=== PATIENT | female | born 1950 | race Hispanic/Latino ===

== ENCOUNTER 2017-08-27 07:35 | Emergency (ER) | payer SELFPAY ==
[~2017-08-27] VITALS: Ht 160 cm; Wt 66.0 kg
[~2017-08-27 07:35] MED LIST: (None)10 MG OR; ACTOS15 MG OR; ACYCLOVIR800 MG OR; AMARYL4 MG PO; AMITIZA24 MC1 PO; AMOXICILLIN500 MG PO; ASPIRIN81 MG PO; ATENOLOL25 MG PO; BACTRIM DS1 TAB PO; CARAFATE1 G1 PO; CEPHALEXIN500 MG OR; DARVOCET N-100100 - OR; DIABETA5 MG OR; FLEXERIL OR; GLIMEPIRIDE2 MG PO; GLYB/METFO5 MG/500 M PO; KEFLEX500 MG OR; LISINOPRIL10 MG OR; LISINOPRIL20 M1 PO; LORTAB 10-325 M1 TAB PO; LORTAB 5 OR; LORTAB 7.5-3251 TAB PO; LORTAB5 OR; LOSARTAN POT50 MG PO; LYRICA75 MG PO; MACRODANTIN100 MG PO; METFORMIN500 M1 OR; METFORMIN850 MG PO; NAPROSYN500 MG OR; NEXIUM20 MG PO; PENTOXIFYLLI400 M1 OR; PHENERGAN25 MG/TAB PO; RANITIDINE150 MG OR; SIMVASTATIN10 MG OR; SIMVASTATIN20 MG PO; VALTREX1 GM OR; [UNRECOGNIZED DRUG - OTHER] PO
[2017-08-27] MEDS ORDERED: AMITIZA24 MCG PO (08:22)
[2017-08-27] MEDS ORDERED: METFORMIN850 MG PO (08:23)
[2017-08-27] MEDS ORDERED: GLIMEPIRIDE2 MG PO (08:23)
[2017-08-27] MEDS ORDERED: LOSARTAN POT50 MG PO (08:24)
[2017-08-27] MEDS ORDERED: ULTRAM50 M1 PO (08:48)
[2017-08-27] MEDS ORDERED: FLEXERIL PO (09:59)
[2017-08-27 10:15] VITALS: BP 159/74
== END 2017-08-27 10:15 | disposition home or self-care (01) | DRG 605 ==
LOC: ED 07:35
DX: S40.012A Contusion of left shoulder, initial encounter (principal); S43.112A Subluxation of left acromioclavicular joint, initial encounter; W18.39XA Other fall on same level, initial encounter; Y93.89 Activity, other specified; Y92.009 Unspecified place in unspecified non-institutional (private) residence as the place of occurrence of the external cause

== ENCOUNTER 2017-10-31 02:46 | Observation (INO) | payer SELFPAY ==
[~2017-10-31] VITALS: Ht 157.5 cm; Wt 62.0 kg
[~2017-10-31 02:46] MED LIST changes: +AMITIZA24 MCG PO; +FLEXERIL PO; +ULTRAM50 M1 PO
--- NOTE | 2017-10-31 02:50 | NUR ---
FAMILY AT BEDSIDE. EXPLAINED CURRENT PLAN OF CARE.
--- NOTE | 2017-10-31 03:03 | NUR ---
Pt tolerated procedures well. IV PATENT.
--- NOTE | 2017-10-31 04:00 | NUR ---
RESTING QUIETLY. AWAITING DISPOSITION.
[2017-10-31 04:14] LABS: ALBUMIN 4.4 g/dL (3.2-5.0); ALKALINE PHOSPHATASE 120 u/l (38-126); ANION GAP 18 (6-22 (CALC)); BILIRUBIN, TOTAL 0.4 mg/dL (0.0-1.4); BUN 18 mg/dL (8-23); BUN/CREATININE RATIO 21 (12-20 (CALC)); CARBON DIOXIDE 24 mmol/l (22-30); CHLORIDE 105 mmol/l (95-108); CREATININE 0.9 mg/dL (0.5-1.0); GFR > 60 ML/MIN (>=60 (CALC)); GFR FOR AFR.AMER. > 60 ML/MIN (>=60 (CALC)); POTASSIUM 3.9 mmol/l (3.5-5.1); SGOT/AST 30 u/l (9-36); SGPT/ALT 15 u/l (11-66); SODIUM 143 mmol/l (137-146); TOTAL PROTEIN 7.3 g/dL (6.3-8.2)
[2017-10-31 04:18] LABS: HEMATOCRIT 35.9 % (37.0-47.0); HEMOGLOBIN 12.1 g/dl (12.0-16.0); IMMATURE GRANULOCYTES 0.7 % (0.0-1.0); MEAN CELL VOLUME 89.1 fL CALC (80.0-100.0); MEAN CORPUSCULAR HGB CONC 33.7 g/L CALC (32.0-36.0); NEUT# 3.82 thou/uL (2.00-7.15); RED BLOOD COUNT 4.03 mill/uL (4.20-5.60); RED CELL DISTRI WIDTH 12.3 % (11.5-15.5)
[2017-10-31 04:26] LABS: MYOGLOBIN 40 ng/mL (0 - 62)
--- NOTE | 2017-10-31 05:00 | NUR ---
DISCUSSED HOME MEDS AND ADMISSION.
--- NOTE | 2017-10-31 05:11 | NUR ---
STATES HEADACHE IS IMPROVED IS CHEST PAIN.
[2017-10-31 05:45] LABS: URINE BILIRUBIN - DIPSTICK NEGATIVE (NEGATIVE); URINE BLOOD DIPSTICK TRACE-INTACT (NEGATIVE); URINE COLOR YELLOW; URINE GLUCOSE - DIPSTICK NEGATIVE (NEGATIVE); URINE KETONE NEGATIVE (NEGATIVE); URINE LEUK ESTERASE NEGATIVE (NEGATIVE); URINE NITRITE - DIPSTICK NEGATIVE (Negative); URINE PROTEIN - DIPSTICK 100 mg/dL (NEG-TRACE); URINE SPECIFIC GRAVITY <=1.005; URINE UROBILINOGEN - DIPSTICK 0.2 E.U./dL (0.2)
[2017-10-31 06:04] LABS: URINE CLARITY CLEAR
[2017-10-31 06:08] LABS: URINE RBC 0-2 RBC/hpf (0-5); URINE SQUAMOUS EPITHELIAL CELL FEW EPI/hpf (0-FEW); URINE WBC 0-2 WBC/hpf (0-5)
--- NOTE | 2017-10-31 06:14 | NUR ---
APPEARS ASLEEP IN NO APPARENT DISTRESS.
--- NOTE | 2017-10-31 07:00 | NUR ---
Admission Note Report Given to: VIMAL RAY Transported by: Wheelchair X Stretcher Transported with: X Nurse Transporter X Patent IV O2 Die Assembler
--- NOTE | 2017-10-31 07:05 | NUR ---
PT CAME VIA STRETCHER WITH ER STAFF. SNUFF BOX FINISHER IN ROOM TO ASSIST PT TO BED.
[2017-10-31 07:23] VITALS: BP 146/72
--- NOTE | 2017-10-31 08:30 | NUR ---
PT IS RESTING IN BED AND ASSESSMENT DONE. RESP EVEN AND NON-LABOR. PT STATED THAT SHE HAS A HEADACHE THAT IS 4/10. PT STATED THAT SHE HAS BEEN FEELING DIZZY. #20 LAC THAT APPEARS HEALTHLY. ORIENTED PT TO ROOM AND CALL LIGHT SYSTEM. REINFORCED SAFETY PRECAUTIONS. PT VERBALIZED UNDERSTANDING. CALL LIGHT IN REACH. FAMILY IN ROOM.
[2017-10-31 09:51] LABS: CHOLESTEROL HDL RATIO 5.1 (<4.4 (CALC)); MAGNESIUM 1.6 mg/dL (1.6-2.3)
--- NOTE | 2017-10-31 10:00 | NUR ---
JOSSE IN TO ASSESS PT. ORDERS RECEIVED.
--- NOTE | 2017-10-31 10:28 | NUR ---
MEDICATED PT WITH TYLENOL FOR HER HEADACHE. PT IS VISITING WITH FAMILY. PT DENIES ANY OTHER NEEDS AT THIS TIME.
[2017-10-31 11:00] VITALS: BP 137/56
--- NOTE | 2017-10-31 11:23 | NUR ---
PT IS RESTING IN BED.PT STATED THAT HEADACHE IS LESS AND THAT MEDICATION HELPED. PT DENIES NEEDS AT THIS TIME. FAMILY IN ROOM.
[2017-10-31 15:00] VITALS: BP 133/56
--- NOTE | 2017-10-31 15:00 | NUR ---
Spoke to pt, using son to translate, about current medication. Pt states all medications are changing soon. Does not wish to discuss medications.
--- NOTE | 2017-10-31 16:01 | NUR ---
PT IS RESTING IN BED. MEDICATED PT WITH ANTIVERT 25MG. DISCUSSED WITH PT THAT MEDICATION HELPS WITH DIZZINESS. PT VERBALIZED UNDERSTANDING. PT HAS FAMILY IN ROOM. CALL LIGHT IN REACH.
--- NOTE | 2017-10-31 16:45 | NUR ---
PHYSICAL THERAPY AT BEDSIDE TO ASSESS PT.
--- NOTE | 2017-10-31 17:20 | NUR ---
MEDICATED PT WITH TYLENOL 500MG FOR HER HEADACHE. PT STATED THAT PAIN IS 5/10. NO S/S OF DISTRESS NOTED. PT DENIES ANY OTHER NEEDS AT THIS TIME.
--- NOTE | 2017-10-31 18:18 | NUR ---
PT IS RESTING IN BED. WITH FAMILY IN ROOM. PT STATED THAT MEDICATION HELPED WITH HER PAIN AND THAT PAIN IS 2/10.
[2017-10-31 18:59] VITALS: BP 138/65
--- NOTE | 2017-10-31 19:30 | NUR ---
PT SITTING UP IN BED WATCHING TV. FAMILY IN ROOM. PT IS SYRIAN SPEAKING ONLY. FAMILY IN ROOM TO INTERPRET. PT IS ALERT AND ORIENTED X3. PERRLA. RESP ARE EVEN AND UNLABORED. NO DISTRESS NOTED. LUNGS ARE CLEAR. TELE IN PLACE. HR REGULAR. PULSES PALPABLE THROUGHOUT. NO EDEMA NOTED. BS ACTIVE. #20 LAC SALINE LOCKED. NO REDNESS OR EDEMA NOTED. WILL CONTINUE TO MONITOR
[2017-11-01] VITALS: BP 116/50
--- NOTE | 2017-11-01 | NUR ---
PT RESTING IN BED WITH EYES CLOSED. RESP ARE EVEN AND UNLABORED. NO DISTRESS NOTED. WILL CONTINUE TO MONITOR
[2017-11-01 04:25] VITALS: BP 125/51
--- NOTE | 2017-11-01 07:00 | NUR ---
RECEIVED BEDSIDE REPORT FROM ISHAN CELIS. RESTING IN BED WITH EYES CLOSED, AWAKENS EASILY. RESPS EVEN AND UNLABORED ON ROOM AIR, TELE MONITOR IN PLACE. DENIES PAIN OR DISCOMFORT. PLAN OF CARE DISCUSSED. SAFETY PRECAUTIONS REINFORCED. BED IN LOWEST POSITION WITH WHEELS LOCKED. CALL LIGHT WITHIN REACH. WILL CONTINUE TO MONITOR.
[2017-11-01 07:16] VITALS: BP 112/56
[2017-11-01 11:39] VITALS: BP 149/69
--- NOTE | 2017-11-01 12:00 | NUR ---
IN [facility] EATING LUNCH. RESPS EVEN AND UNLABORED ON ROOM AIR, TELE MONITOR IN PLACE. DENIES PAIN OR DIZINESS. FAMILY AT BEDSIDE. CALL LIGHT WITHIN REACH. WILL CONTINUE TO MONTIOR.
--- NOTE | 2017-11-01 13:05 | NUR ---
DR MADDOX IN WITH PT, NEW ORDERS RECEIVED.
[2017-11-01] MEDS ORDERED: LOPRESSOR25 MG PO (13:19)
[2017-11-01] MEDS ORDERED: GLIMEPIRIDE2 MG PO (13:19)
[2017-11-01] MEDS ORDERED: METFORMIN1000 MG PO (13:19)
[2017-11-01] MEDS ORDERED: LIPITOR20 MG PO (13:19)
[2017-11-01] MEDS ORDERED: ADLT ASA LOW81 MG PO (13:19)
--- NOTE | 2017-11-01 14:43 | NUR ---
IV site discontinued, cath intact. No edema , no redness, voices no discomfort.
--- NOTE | 2017-11-01 15:37 | NUR ---
Discharge instructions given. Patient verbalizes understanding of same. Discharged in stable condition via Wheelchair to Home with family. All belongings sent with pt.
== END 2017-11-01 15:37 | disposition home or self-care (01) | DRG 313 ==
LOC: ED 02:46 → ED-I 04:30 → ED 05:03 → MS2 05:04
PROVIDERS: Emergency Medicine; Nurse Practitioner Family; ADMIT Internal Medicine; ATTEND Internal Medicine
PROC: 3E0234Z Introduction of Serum, Toxoid and Vaccine into Muscle, Percutaneous Approach (ICD-10-PCS; principal; 2017-11-01)
DX: R07.2 Precordial pain (principal); E11.65 Type 2 diabetes mellitus with hyperglycemia; I10 Essential (primary) hypertension; I16.0 Hypertensive urgency; R42 Dizziness and giddiness; R51 Headache; K21.9 Gastro-esophageal reflux disease without esophagitis; E78.5 Hyperlipidemia, unspecified; Z87.440 Personal history of urinary (tract) infections; Z91.11 Patient's noncompliance with dietary regimen; Z79.84 Long term (current) use of oral hypoglycemic drugs; Z23 Encounter for immunization
CPT/HCPCS: G0378

== ENCOUNTER 2019-04-03 08:07 | Observation (INO) | payer MEDICARE, MEDICAID ==
[~2019-04-03] VITALS: Ht 157.5 cm; Wt 59.0 kg
[~2019-04-03 08:07] MED LIST changes: +ADLT ASA LOW81 MG PO; +LIPITOR20 MG PO; +LOPRESSOR25 MG PO; +LOSARTAN POT100 MG PO; +METFORMIN1000 MG PO
[2019-04-03 08:38] LABS: HEMOGLOBIN 13.4 g/dl (12.0-16.0); IMMATURE GRANULOCYTES 0.9 % (0.0-5.0); MEAN CELL VOLUME 87.1 fL CALC (80.0-100.0); MEAN CORPUSCULAR HGB 29.2 pG CALC (26.0-32.0); MEAN CORPUSCULAR HGB CONC 33.5 g/L CALC (32.0-36.0); NEUT# 5.26 thou/uL (2.00-7.15); RED BLOOD COUNT 4.59 mill/uL (4.20-5.60); RED CELL DISTRI WIDTH 11.7 % (11.5-15.5)
[2019-04-03 09:02] LABS: ALBUMIN 4.5 g/dL (3.2-5.0); ALKALINE PHOSPHATASE 157 u/l (38-126); ANION GAP 21 (6-22 (CALC)); BUN 22 mg/dL (8-23); BUN/CREATININE RATIO 24 (12-20 (CALC)); CARBON DIOXIDE 20 mmol/l (22-30); CHLORIDE 103 mmol/l (95-108); CREATININE 0.9 mg/dL (0.5-1.0); GFR > 60 ML/MIN (>=60 (CALC)); GFR FOR AFR.AMER. > 60 ML/MIN (>=60 (CALC)); POTASSIUM 4.4 mmol/l (3.5-5.1); SGOT/AST 27 u/l (9-36); SODIUM 139 mmol/l (137-146); TOTAL PROTEIN 7.7 g/dL (6.3-8.2)
[2019-04-03 09:08] LABS: BILIRUBIN, TOTAL 0.7 mg/dL (0.0-1.4)
[2019-04-03 09:14] LABS: MYOGLOBIN 51 ng/mL (0 - 62)
[2019-04-03] MEDS ORDERED: LOPRESSOR25 M1 PO (09:55)
[2019-04-03] MEDS ORDERED: GLIMEPIRIDE2 MG PO (09:56)
[2019-04-03] MEDS ORDERED: LIPITOR20 M1 PO (09:56)
[2019-04-03] MEDS ORDERED: METFORMIN HCL750 MG PO (09:57)
[2019-04-03] MEDS ORDERED: ALLERGY RELF10 M3 PO (09:57)
[2019-04-03 10:44] VITALS: BP 167/81
[2019-04-03 11:27] LABS: URINE BILIRUBIN - DIPSTICK NEGATIVE (NEGATIVE); URINE BLOOD DIPSTICK NEGATIVE (NEGATIVE); URINE COLOR YELLOW; URINE GLUCOSE - DIPSTICK 500 mg/dL (NEGATIVE); URINE KETONE TRACE mg/dL (NEGATIVE); URINE LEUK ESTERASE NEGATIVE (NEGATIVE); URINE NITRITE - DIPSTICK NEGATIVE (Negative); URINE PH 5.5 (4.5-8.0); URINE SPECIFIC GRAVITY 1.015; URINE UROBILINOGEN - DIPSTICK 0.2 E.U./dL (0.2)
[2019-04-03 11:28] LABS: URINE PROTEIN - DIPSTICK Trace mg/dL (NEG-TRACE)
[2019-04-03 12:53] VITALS: BP 118/48
[2019-04-03 16:00] VITALS: BP 144/62
[2019-04-03 19:22] VITALS: BP 141/75
[2019-04-04 04:04] VITALS: BP 141/67
[2019-04-04 05:24] LABS: HEMATOCRIT 34.3 % (37.0-47.0); HEMOGLOBIN 11.5 g/dl (12.0-16.0); IMMATURE GRANULOCYTES 0.7 % (0.0-5.0); MEAN CELL VOLUME 87.9 fL CALC (80.0-100.0); MEAN CORPUSCULAR HGB 29.5 pG CALC (26.0-32.0); MEAN CORPUSCULAR HGB CONC 33.5 g/L CALC (32.0-36.0); NEUT# 2.53 thou/uL (2.00-7.15); RED BLOOD COUNT 3.9 mill/uL (4.20-5.60); RED CELL DISTRI WIDTH 11.8 % (11.5-15.5)
[2019-04-04 05:41] LABS: ALBUMIN 3.4 g/dL (3.2-5.0); ALKALINE PHOSPHATASE 110 u/l (38-126); AMYLASE 44 u/l (30-110); ANION GAP 15 (6-22 (CALC)); BILIRUBIN, TOTAL 0.4 mg/dL (0.0-1.4); BUN 26 mg/dL (8-23); BUN/CREATININE RATIO 27 (12-20 (CALC)); CARBON DIOXIDE 23 mmol/l (22-30); CHLORIDE 104 mmol/l (95-108); GFR 55 ML/MIN (>=60 (CALC)); GFR FOR AFR.AMER. > 60 ML/MIN (>=60 (CALC)); LIPASE 76 u/l (23-300); MAGNESIUM 1.6 mg/dL (1.6-2.3); POTASSIUM 4.8 mmol/l (3.5-5.1); SGOT/AST 22 u/l (9-36); SODIUM 138 mmol/l (137-146)
[2019-04-04 07:15] VITALS: BP 143/72
[2019-04-04 09:17] LABS: CHOLESTEROL HDL RATIO 4.8 (<4.4 (CALC))
[2019-04-04 09:42] VITALS: BP 143/72
== END 2019-04-04 11:40 | disposition home or self-care (01) ==
LOC: ED 08:07 → ED-I 09:32 → ED 09:53 → MS2 09:54
PROVIDERS: Emergency Medicine; Nurse Practitioner Family; ADMIT Internal Medicine Nephrology; ATTEND Internal Medicine Nephrology
PROC: 3E0234Z Introduction of Serum, Toxoid and Vaccine into Muscle, Percutaneous Approach (ICD-10-PCS; principal; 2019-04-04)
DX: R07.89 Other chest pain (principal); K21.9 Gastro-esophageal reflux disease without esophagitis; E11.65 Type 2 diabetes mellitus with hyperglycemia; I10 Essential (primary) hypertension; E78.5 Hyperlipidemia, unspecified; M19.90 Unspecified osteoarthritis, unspecified site; T38.3X6A Underdosing of insulin and oral hypoglycemic [antidiabetic] drugs, initial encounter; Z91.128 Patient's intentional underdosing of medication regimen for other reason; Z79.84 Long term (current) use of oral hypoglycemic drugs; Z23 Encounter for immunization
CPT/HCPCS: J1650

== ENCOUNTER 2019-08-14 09:29 | Observation (INO) | payer MEDICARE, MEDICAID ==
[~2019-08-14] VITALS: Ht 157.5 cm; Wt 60.0 kg
[~2019-08-14 09:29] MED LIST changes: +ALLERGY RELF10 M3 PO; +LIPITOR20 M1 PO; +LOPRESSOR25 M1 PO; +METFORMIN HCL500 M3 PO
[2019-08-14] MEDS ORDERED: METFORMIN500 MG PO (09:42)
[2019-08-14] MEDS ORDERED: CARVEDILOL6.25 MG PO (09:43)
--- NOTE | 2019-08-14 09:45 | NUR ---
PT AMBULATED TO ROOM 6 WITH STEADY GAIT AND DAUGHTER AT SIDE
--- NOTE | 2019-08-14 09:50 | NUR ---
PT PRESENTS WITH EPIGASTRIC ABDOMINAL PAIN OF 6/10. PT STATES PAIN STARTED YESTERDAY AND HAS NAUSEA THAT ACCOMPANIES IT. NO VOMITING. PT STATES NAUSEA IS AGRIVATED WITH INGESTION. PT HAS REGULAR BOWEL MOVEMENTS. PT ABDOMEN TENDER IN EPIGASTRIC AREA. WILL CONTINUE TO MONITOR.
--- NOTE | 2019-08-14 10:27 | NUR ---
ATTEMPTED TO INITIATE IV FOR BOLUS OF FLUIDS, TWO ATTEMPTS FAILED. THE VEIN BLEW ON BOTH ATTEMPTS. FRANCES NOTIFIED, AND HE WILL ATTEMPT TO GET IV INITIATED.
[2019-08-14 10:32] LABS: URINE BILIRUBIN - DIPSTICK NEGATIVE (NEGATIVE); URINE BLOOD DIPSTICK NEGATIVE (NEGATIVE); URINE COLOR YELLOW; URINE GLUCOSE - DIPSTICK NEGATIVE (NEGATIVE); URINE KETONE NEGATIVE (NEGATIVE); URINE LEUK ESTERASE NEGATIVE (NEGATIVE); URINE NITRITE - DIPSTICK NEGATIVE (Negative); URINE SPECIFIC GRAVITY <=1.005; URINE UROBILINOGEN - DIPSTICK 0.2 E.U./dL (0.2)
[2019-08-14 10:33] LABS: URINE PROTEIN - DIPSTICK Trace mg/dL (NEG-TRACE)
[2019-08-14 10:51] LABS: HEMATOCRIT 36.2 % (37.0-47.0); HEMOGLOBIN 12.1 g/dl (12.0-16.0); IMMATURE GRANULOCYTES 0.4 % (0.0-5.0); MEAN CELL VOLUME 87.7 fL CALC (80.0-100.0); MEAN CORPUSCULAR HGB 29.3 pG CALC (26.0-32.0); MEAN CORPUSCULAR HGB CONC 33.4 g/L CALC (32.0-36.0); NEUT# 3.5 thou/uL (2.00-7.15); RED BLOOD COUNT 4.13 mill/uL (4.20-5.60); RED CELL DISTRI WIDTH 11.9 % (11.5-15.5)
[2019-08-14 11:12] LABS: ALBUMIN 4.6 g/dL (3.2-5.0); ALKALINE PHOSPHATASE 104 u/l (38-126); AMYLASE 67 u/l (30-110); ANION GAP 17 (6-22 (CALC)); BUN 20 mg/dL (8-23); BUN/CREATININE RATIO 20 (12-20 (CALC)); CARBON DIOXIDE 26 mmol/l (22-30); CHLORIDE 100 mmol/l (95-108); GFR 55 ML/MIN (>=60 (CALC)); GFR FOR AFR.AMER. > 60 ML/MIN (>=60 (CALC)); LIPASE 140 u/l (23-300); POTASSIUM 4.5 mmol/l (3.5-5.1); SGOT/AST 35 u/l (9-36); SODIUM 138 mmol/l (137-146); TOTAL PROTEIN 7.9 g/dL (6.3-8.2)
--- NOTE | 2019-08-14 11:21 | NUR ---
PT IN RADIOLOGY AT THIS MOMENT. DAUGHTER DENIES ANY NEEDS AT THIS TIME.
--- NOTE | 2019-08-14 12:17 | NUR ---
PT RESTING ON STRETCHER. DENIES ANY NEEDS AT THIS TIME
--- NOTE | 2019-08-14 13:00 | NUR ---
STARTED PO CONTRAST
--- NOTE | 2019-08-14 13:35 | NUR ---
PT RESTING ON STRETCHER TAKING PO CONTRAST
--- NOTE | 2019-08-14 14:33 | NUR ---
PT COMPLETED INTAKE OF GASTROGRAFFIN AT 1400 PER DAUGHTER.
--- NOTE | 2019-08-14 14:41 | NUR ---
ASSISTED PT TO [facility]. WILL FIND OUT ABOUT RADIOLOGY TAKING PT BACK SINCE SHE COMPLETED ORAL CONTRAST
--- NOTE | 2019-08-14 14:49 | NUR ---
CALLED RADIOLOGY TO SEE WHEN THEY WILL PROPRIETARY TRADER PT FOR CT SINCE PO CONTRAST WAS COMPLETED 49 MINS AGO.
--- NOTE | 2019-08-14 15:05 | NUR ---
ACC CHECK DONE ON PT BECAUSE DAUGHTER WAS CONCERNED THAT HER DIABETIC MOTHER (WHO IS THE PT) HAS NOT EATTEN. HER BG RESULT WAS 143. RESULTS WAS DISCUSSED WITH DAUGHTER AND PT.
--- NOTE | 2019-08-14 16:29 | NUR ---
DAUGHTER CONCERNED ABOUT PT PLAN OF CARE, NOTIFIED AND HE IS SPEAKING TO HER AND PT RIGHT NOW.
--- NOTE | 2019-08-14 17:12 | NUR ---
PT MADE AWARE OF NOT DRIVING, DAUGHTER WILL DRIVE. MORPHINE GIVIN STARTING VITAL: BP 177/77 HR 83 O2 98 RR 34
--- NOTE | 2019-08-14 17:19 | NUR ---
IV INITIATED IN LEFT WRIST 22 G BY REGINA PERRY
--- NOTE | 2019-08-14 17:19 | NUR ---
VITALS AFTER FIVE MINS BP 179/80 HR 78 O2 97 RR 25
--- NOTE | 2019-08-14 18:08 | NUR ---
REPORT EMILIE DELCID
--- NOTE | 2019-08-14 18:20 | NUR ---
Pt transported to [place] via W/C by nursing curing room supervisor VIMAL Holloway
[2019-08-14 18:45] VITALS: BP 150/67
--- NOTE | 2019-08-14 19:35 | NUR ---
PT RESTING IN BED, ALERT AND ORIENTED. FAMILY AT BEDSIDE. RESPIRATIONS EVEN AND UNLABORED ON RA. LUNGS SOUND CLEAR. PEDAL PULSES STRONG. PT DENIES ANY PAIN OR DISCOMFORT AT THIS TIME. #22 LW PATENT AND APPEARS HEALTHY. SAFETY PRECAUTIONS IN PLACE. WILL CONTINEU TO MONITOR.
--- NOTE | 2019-08-15 00:14 | NUR ---
PT RESTING IN BED NO S/S OF DISTRESS AT THIS TIME. RESPIRATIONS EVEN AND UNLABORED ON RA. SAFETY PRECAUTIONS IN PLACE. WILL CONTINUE TO MONITOR.
[2019-08-15 03:55] VITALS: BP 132/67
--- NOTE | 2019-08-15 04:15 | NUR ---
PT RESTING IN BED NO S/S OF DISTRESS AT THIS TIME. SAFETY PRECAUTIONS IN PLACE. WILL CONTINUE TO MONITOR.
[2019-08-15 05:46] LABS: HEMATOCRIT 35.2 % (37.0-47.0); HEMOGLOBIN 11.7 g/dl (12.0-16.0); IMMATURE GRANULOCYTES 0.5 % (0.0-5.0); MEAN CELL VOLUME 89.3 fL CALC (80.0-100.0); MEAN CORPUSCULAR HGB 29.7 pG CALC (26.0-32.0); MEAN CORPUSCULAR HGB CONC 33.2 g/L CALC (32.0-36.0); NEUT# 2.17 thou/uL (2.00-7.15); RED BLOOD COUNT 3.94 mill/uL (4.20-5.60)
[2019-08-15 06:07] LABS: ANION GAP 12 (6-22 (CALC)); BUN 16 mg/dL (8-23); BUN/CREATININE RATIO 16 (12-20 (CALC)); CARBON DIOXIDE 27 mmol/l (22-30); CHLORIDE 104 mmol/l (95-108); GFR 55 ML/MIN (>=60 (CALC)); GFR FOR AFR.AMER. > 60 ML/MIN (>=60 (CALC)); MAGNESIUM 1.7 mg/dL (1.6-2.3); POTASSIUM 4.3 mmol/l (3.5-5.1); SODIUM 140 mmol/l (137-146)
[2019-08-15 07:40] VITALS: BP 149/69
--- NOTE | 2019-08-15 08:00 | NUR ---
PT RESTING IN BED WITH FAMILY MEMBERS AT BEDSIDE. MILD TENDERNESS IN EPIGASTRIC REGION REPORTED 10/02. DISCUSSED POC. NO FURTHER NEEDS AT THIS TIME. CALL LIGHT IN REACH. CONTINUE TO MONITOR.
[2019-08-15 11:13] VITALS: BP 149/69; BP 151/70
--- NOTE | 2019-08-15 11:50 | NUR ---
called in consultation regarding this pt. spoke to at [phone] gave room number and reasoning. he stated he would be happy to see her.
--- NOTE | 2019-08-15 13:48 | NUR ---
STOOL SPECIMEN OBTAINED, SENT TO LAB. AT BEDSIDE, DISCUSSED POC SUPERVISOR SPECIAL EDUCATION TRANSLATED. CALL LIGHT IN REACH,CONTINUE TO MONITOR
--- NOTE | 2019-08-15 14:00 | NUR ---
PT RESTING IN BED. NO NEEDS AT THIS TIME. CALL LIGHT IN REACH. CONTINUE TO MONITOR.
[2019-08-15 15:25] VITALS: BP 126/61
--- NOTE | 2019-08-15 15:36 | NUR ---
PT REPORTED NAUSEA. IV ZOFRAN GIVEN. TOLERATED WELL. CONTINUE TO MONITOR.
--- NOTE | 2019-08-15 16:35 | NUR ---
PT STATES NAUSEA HAS SUBSIDED. NO OTHER NEEDS AT THIS TIME.CALL LIGHT IN REACH. CONTINUE TO MONITOR.
[2019-08-15 19:08] VITALS: BP 139/62
--- NOTE | 2019-08-15 19:30 | NUR ---
PATIENT RESTING IN BED AT THIS TIME-AWAKE ALERT AND ORIENTEDX3 WITH SEVERAL FAMILY MEMBERS AT BEDSIDE. PAIN DENIES ANY PAIN OR NAUSEA AT THIS TIME. PREMA MOFFETT WAS ABLE TO TRANSLATE WITH PATIENT. IVF NS PATENT ANDINFUSING VIA LEFT WRIST SITE AT 100CC/HR. SAFETY PRECAUTIONS REINFORCED. CALL LIGHT IN REACH. WILL CONT TO MONITOR.
--- NOTE | 2019-08-16 | NUR ---
PATIENT APPEARS SLEEPING IN BED WITH EYES CLOSED. RESPS ARE EVEN AND UNLABORED. FAMILY MEMBER APPEARS SLEEPING ON SOFA. IVF PATENT AND INFUSING VIA LEFT WRIST SITE. CALL LIGHT IN REACH. WILL CONT TO MONITOR.
[2019-08-16 03:55] VITALS: BP 124/60
--- NOTE | 2019-08-16 04:13 | NUR ---
PATIENT RESTING IN BED AT THIS TIME-APPEARS SLEEPING WITH EYES CLOSED. IVF PATENT AND IFUSING VIA LEFT WRIST AT 100CC/HR. SITE REMAINS HEALTHY AT THIS TIME. RESP ARE EVEN AND UNLABORED. CALL LIGHT IN REACH.WILL CONT TO MONITOR.
[2019-08-16 06:50] VITALS: BP 136/69
--- NOTE | 2019-08-16 07:35 | NUR ---
PT RESTING IN BED. A&O X3. NO DISTRESS NOTED. FAMILY MEMBER AT BEDSIDE. PT COMPLAINED OF BOTHERSOME FEELING AT IV BUT NO INFILTRATION NOTED. PT STATED THAT IT WAS OKAY TO FINISH INFUSING FLUIDS BEFORE REMOVAL. DISCUSSED POC. ASSESSMENT COMPLETED. CALL LIGHT IN REACH, CONTINUE TO MONITOR.
[2019-08-16 11:35] VITALS: BP 152/74
--- NOTE | 2019-08-16 12:00 | NUR ---
NEW #22 IV STARTED ON PTS RT FOREARM BY GARRETT CELIS. NS FLUIDS INFUSING WITH NO PROBLEMS. NO OTHER NEEDS AT THIS TIME, CONTINUE TO MONITOR.
--- NOTE | 2019-08-16 12:06 | NUR ---
DR LEIGH AT BED SIDE. POC DISCUSSED WITH POSSIBILITY OF DISCHARGE. NOR FURTHER CONCERNS BY THE PT AT THIS TIME.
[2019-08-16 15:51] VITALS: BP 173/71
--- NOTE | 2019-08-16 18:48 | NUR ---
Discharge instructions given. Patient verbalizes understanding of same. Discharged in stable condition via Wheelchair to Home with family. All belongings sent with pt. PT D/C HOME WITH FAMILY, NO RESPIRATORY NOTED. NO CONCERNS VOICED.
== END 2019-08-16 18:57 | disposition home or self-care (01) ==
LOC: ED 09:29 → ED-I 15:43 → ED 15:54 → MS2 15:55
PROVIDERS: Emergency Medicine; Nurse Practitioner Family; ADMIT Internal Medicine; ATTEND Internal Medicine
DX: K56.7 Ileus, unspecified (principal); A08.4 Viral intestinal infection, unspecified; E11.9 Type 2 diabetes mellitus without complications; I10 Essential (primary) hypertension; E78.5 Hyperlipidemia, unspecified; K21.9 Gastro-esophageal reflux disease without esophagitis; Z87.440 Personal history of urinary (tract) infections; Z79.84 Long term (current) use of oral hypoglycemic drugs; Z23 Encounter for immunization
CPT/HCPCS: G0378; Q9967; S0164

== ENCOUNTER 2020-09-07 18:07 | Emergency (ER) | payer MEDICARE, MEDICAID ==
[~2020-09-07] VITALS: Ht 157.5 cm; Wt 61.0 kg
[~2020-09-07 18:07] MED LIST changes: +CARVEDILOL6.25 MG PO; +METFORMIN500 MG PO
[2020-09-07 19:43] LABS: HEMATOCRIT 33.6 % (37.0-47.0); HEMOGLOBIN 11.2 g/dl (12.0-16.0); IMMATURE GRANULOCYTES 0.9 % (0.0-5.0); MEAN CELL VOLUME 88.7 fL CALC (80.0-100.0); MEAN CORPUSCULAR HGB 29.6 pG CALC (26.0-32.0); MEAN CORPUSCULAR HGB CONC 33.3 g/dL CAL (32.0-36.0); NEUT# 3.27 thou/uL (2.00-7.15); RED BLOOD COUNT 3.79 mill/uL (4.20-5.60); RED CELL DISTRI WIDTH 12.3 % (11.5-15.5)
[2020-09-07 19:44] LABS: URINE BILIRUBIN - DIPSTICK NEGATIVE (NEGATIVE); URINE BLOOD DIPSTICK TRACE-LYSED (NEGATIVE); URINE COLOR YELLOW; URINE GLUCOSE - DIPSTICK NEGATIVE (NEGATIVE); URINE KETONE NEGATIVE (NEGATIVE); URINE LEUK ESTERASE TRACE (NEGATIVE); URINE NITRITE - DIPSTICK NEGATIVE (Negative); URINE PROTEIN - DIPSTICK 30 mg/dL (NEG-TRACE); URINE RBC 0-2 RBC/hpf (0-5); URINE SPECIFIC GRAVITY 1.015; URINE UROBILINOGEN - DIPSTICK 0.2 E.U./dL (0.2); URINE WBC 0-2 WBC/hpf (0-5)
[2020-09-07 19:45] LABS: URINE SQUAMOUS EPITHELIAL CELL FEW EPI/hpf (0-FEW)
[2020-09-07 19:59] LABS: ALBUMIN 4.5 g/dL (3.2-5.0); CREATININE 1.4 mg/dL (0.5-1.0); TOTAL PROTEIN 7.8 g/dL (6.3-8.2)
[2020-09-07 20:00] LABS: BILIRUBIN, TOTAL 0.4 mg/dL (0.0-1.4)
[2020-09-07] MEDS ORDERED: VOLTAREN - GENE75 MG PO (21:07)
[2020-09-07 21:35] VITALS: BP 170/66
== END 2020-09-07 21:35 | disposition home or self-care (01) ==
LOC: ED 18:07
PROVIDERS: Family Medicine
DX: M54.16 Radiculopathy, lumbar region (principal); R10.30 Lower abdominal pain, unspecified; I10 Essential (primary) hypertension; E78.5 Hyperlipidemia, unspecified; E11.9 Type 2 diabetes mellitus without complications; Z79.84 Long term (current) use of oral hypoglycemic drugs

== ENCOUNTER 2020-11-26 12:54 | Emergency (ER) | payer MEDICARE, MEDICAID ==
[~2020-11-26] VITALS: Ht 157.5 cm; Wt 62.7 kg
[~2020-11-26 12:54] MED LIST changes: +VOLTAREN - GENE75 MG PO
[2020-11-26] MEDS ORDERED: TESSALON PERLE100 MG PO (15:28)
[2020-11-26 15:38] VITALS: BP 129/76
== END 2020-11-26 15:38 | disposition home or self-care (01) ==
LOC: ED 12:54
DX: U07.1 COVID-19 (principal); E11.9 Type 2 diabetes mellitus without complications; I10 Essential (primary) hypertension; E78.5 Hyperlipidemia, unspecified; Z79.84 Long term (current) use of oral hypoglycemic drugs